=== PATIENT | female | born 1955 | race Caucasian/White ===

== ENCOUNTER 2016-10-25 11:41 | Inpatient (IN) | payer OTHER ==
[2016-10-25] VITALS (7 sets, daily range): BP systolic 100–162; BP diastolic 66–114
[~2016-10-25] VITALS: Ht 152.4 cm; Wt 41.2 kg
[2016-10-25 11:59] LABS: HEMATOCRIT 37.2 % (36.0-46.0); MCH 32.7 PG (29.0-34.0); MCHC 33.3 G/DL (30.0-36.0); MCV 98.2 FL (83-99); MEAN PLAT.VOLUME 9.1 uM^3 (9.5-12.4); PLATELET COUNT 196 K/uL (156-360); RBC DIS.WIDTH-CV 13.2 % (11.8-14.6); RBC DIS.WIDTH-SD 47.5 % (39-53); RED BLOOD COUNT 3.79 M/uL (3.80-5.20); WHITE BLOOD COUNT 11.2 K/uL (4.1-10.2)
[2016-10-25 12:19] LABS: AMYLASE 19 IU/L (1-118); CHLORIDE 92 mEq/L (99-109); SODIUM 134 mEq/L (136-147)
[2016-10-25 12:21] LABS: GLUCOSE 120 mg/dL (70-99)
[2016-10-25 12:24] LABS: SERUM ETHYL ALCOHOL < 10 mg/dL
[2016-10-25 12:26] LABS: UREA NITROGEN (BUN) 9 mg/dL (9-23)
[2016-10-25 12:28] LABS: LIPASE 19 U/L (1.0-51.0)
[2016-10-25 12:31] LABS: GFR ESTIMATE (CALCULATED) > 59 mL/min/
[2016-10-25 12:39] LABS: ANION GAP 10 MEQ/L (2-14)
[2016-10-25 14:03] LABS: PROTHROMBIN TIME 11.2 SEC (10.2-12.9)
[2016-10-25 14:05] LABS: PTT 31.5 SEC (25-37)
[2016-10-25 14:15] LABS: BASOPHIL COUNT 0.1 K/uL (0-0.1); EOSINOPHIL (%) 0.2 % (0-5); IMMATURE GRANULOCYTE (%) 1.7 % (0.0-0.7); IMMATURE GRANULOCYTE COUNT 0.2 K/uL; INSTRUMENT ABS NEUTROPHIL CT 9.8 K/uL; LYMPHOCYTE COUNT 0.3 K/uL (1.0-2.8); MONOCYTE (%) 8.3 % (3-12); MONOCYTE COUNT 0.9 K/uL (0-0.8); NEUTROPHIL (%) 86.8 % (45-76); NEUTROPHIL COUNT 9.8 K/uL (1.8-6.4)
[2016-10-25] MEDS ORDERED: LEVOTHYROXINE100 MCG PO (14:20)
[2016-10-25] MEDS ORDERED: LO-DOSE ASPIRIN81 M1 PO (14:20)
[2016-10-25] MEDS ORDERED: VENTOLIN HFA18 GM IH (14:20)
[2016-10-25] MEDS ORDERED: AMIODARONE HCL200 MG PO (14:55)
[2016-10-25] MEDS ORDERED: LOPRESSOR25 MG PO (14:56)
[2016-10-25] MEDS ORDERED: ATORVASTATIN CA40 MG PO (14:56)
[2016-10-25] MEDS ORDERED: ALPRAZOLAM0.5 MG PO (14:57)
[2016-10-25 15:01] LABS: PREALBUMIN < 3.0 mg/dL (10-40)
[2016-10-25 15:30] LABS: TROP-I INTERPRETATION NEGATIVE; TROPONIN-I 0.03 ng/mL (0.0-0.30)
[2016-10-25 17:44] LABS: METH RESISTANT S AUREUS PCR NEGATIVE (NEGATIVE)
[2016-10-25 17:50] LABS: PROBE CHECK PASS; SPECIMEN PROCESSING CONTROL PASS
[2016-10-26] VITALS (14 sets, daily range): BP systolic 92–161; BP diastolic 54–90
[2016-10-26 01:30] LABS: TROP-I INTERPRETATION NEGATIVE; TROPONIN-I 0.02 ng/mL (0.0-0.30)
[2016-10-26 05:28] LABS: ADD MIUA? NO; BILIRUBIN NEGATIVE; BLOOD NEGATIVE; COLOR AMBER ((YELLOW)); GLUCOSE (STRIP) NEGATIVE; KETONES NEGATIVE; LEUKOCYTES NEGATIVE; NITRITE NEGATIVE; PROTEIN (STRIP) 30
[2016-10-26 05:33] LABS: SPECIFIC GRAVITY 1.089 (1.000-1.030)
[2016-10-26 06:12] LABS: AMPHETAMINES QUANT VALUE 0 NG/ML; BARBITUATES QUANT VALUE 0 NG/ML; BENZODIAZEPINES, URINE SCREEN POSITIVE (200 ng/mL); MARIJUANA QUANT VALUE 0 NG/ML; PHENCYCLIDINE QUANT VALUE 0 NG/ML
[2016-10-26 07:13] LABS: HEMATOCRIT 36.3 % (36.0-46.0); MCH 32.9 PG (29.0-34.0); MCHC 32.8 G/DL (30.0-36.0); MCV 100.3 FL (83-99); MEAN PLAT.VOLUME 9.3 uM^3 (9.5-12.4); PLATELET COUNT 163 K/uL (156-360); RBC DIS.WIDTH-CV 13.3 % (11.8-14.6); RBC DIS.WIDTH-SD 49.4 % (39-53); RED BLOOD COUNT 3.62 M/uL (3.80-5.20)
[2016-10-26 07:40] LABS: ALKALINE PHOSPHATASE 75 IU/L (3-129); ANION GAP 9 MEQ/L (2-14); CHLORIDE 100 MEQ/L (99-109); GFR ESTIMATE (CALCULATED) > 59 mL/min/; GLUCOSE 141 mg/dL (70-99); MAGNESIUM 1.6 mg/dl (1.3-2.7); SAMPLE HEMOLYSIS CHECK 0; SAMPLE ICTERIC CHECK 0; SAMPLE LIPEMIA CHECK 0; SODIUM 137 MEQ/L (136-147); TOTAL BILIRUBIN 0.4 MG/DL (0.0-1.0); UREA NITROGEN (BUN) 10 mg/dL (9-23)
[2016-10-26 07:42] LABS: TROP-I INTERPRETATION NEGATIVE; TROPONIN-I 0.02 ng/mL (0.0-0.30)
[2016-10-26 07:51] LABS: POTASSIUM 4.9 MEQ/L (3.7-5.4)
[2016-10-26 17:02] LABS: TROP-I INTERPRETATION NEGATIVE; TROPONIN-I 0.04 ng/mL (0.0-0.30)
[2016-10-27 07:08] LABS: HEMATOCRIT 33.3 % (36.0-46.0); MCH 33.5 PG (29.0-34.0); MCHC 33.3 G/DL (30.0-36.0); MCV 100.6 FL (83-99); MEAN PLAT.VOLUME 9.8 uM^3 (9.5-12.4); PLATELET COUNT 118 K/uL (156-360); RBC DIS.WIDTH-CV 13.6 % (11.8-14.6); RBC DIS.WIDTH-SD 50.4 % (39-53); RED BLOOD COUNT 3.31 M/uL (3.80-5.20); WHITE BLOOD COUNT 11.1 K/uL (4.1-10.2)
[2016-10-27 07:30] LABS: TROP-I INTERPRETATION NEGATIVE; TROPONIN-I 0.13 ng/mL (0.0-0.30)
[2016-10-27 07:52] LABS: ANION GAP 8 MEQ/L (2-14); CHLORIDE 104 MEQ/L (99-109); GFR ESTIMATE (CALCULATED) > 59 mL/min/; GLUCOSE 164 mg/dL (70-99); POTASSIUM 5.2 MEQ/L (3.7-5.4); SAMPLE HEMOLYSIS CHECK 0; SAMPLE ICTERIC CHECK 0; SAMPLE LIPEMIA CHECK 0; SODIUM 138 MEQ/L (136-147); UREA NITROGEN (BUN) 12 mg/dL (9-23)
[2016-10-27 08:24] VITALS: BP 1596/72
[2016-10-27 11:37] VITALS: BP 177/96
== END 2016-10-27 13:45 | disposition left against medical advice (07) | DRG 82 ==
LOC: TRA 11:41 → 3EAST 13:57 → EDOF 13:57 → 4WEST 13:57 → ENRESERV 13:58 → 4WEST 16:03 → ENRESERV 10-26 13:08 → 3EAST 10-26 19:19
PROVIDERS: Emergency Medicine; Surgery
PROC: 0HQEXZZ Repair Left Lower Arm Skin, External Approach (ICD-10-PCS; principal; 2016-10-25)
DX: S06.339A Contusion and laceration of cerebrum, unspecified, with loss of consciousness of unspecified duration, initial encounter (principal); J69.0 Pneumonitis due to inhalation of food and vomit; S51.012A Laceration without foreign body of left elbow, initial encounter; S01.81XA Laceration without foreign body of other part of head, initial encounter; V47.5XXA Car driver injured in collision with fixed or stationary object in traffic accident, initial encounter; Y92.410 Unspecified street and highway as the place of occurrence of the external cause; S20.212A Contusion of left front wall of thorax, initial encounter; R40.2413 Glasgow coma scale score 13-15, at hospital admission; I82.890 Acute embolism and thrombosis of other specified veins; J44.1 Chronic obstructive pulmonary disease with (acute) exacerbation; J95.5 Postprocedural subglottic stenosis; K22.2 Esophageal obstruction; E87.3 Alkalosis; C15.9 Malignant neoplasm of esophagus, unspecified; I65.23 Occlusion and stenosis of bilateral carotid arteries; E46 Unspecified protein-calorie malnutrition; E87.6 Hypokalemia; Z68.1 Body mass index [BMI] 19.9 or less, adult; N20.0 Calculus of kidney; I10 Essential (primary) hypertension; E78.5 Hyperlipidemia, unspecified; E03.9 Hypothyroidism, unspecified; I25.10 Atherosclerotic heart disease of native coronary artery without angina pectoris; M47.892 Other spondylosis, cervical region; M50.223 Other cervical disc displacement at C6-C7 level; Z87.891 Personal history of nicotine dependence; Z91.81 History of falling; Z92.3 Personal history of irradiation; Z23 Encounter for immunization; Z96.89 Presence of other specified functional implants
CPT/HCPCS: 70450; 71010; 71260; 72125; 72129; 72132; 73080; 74177; 74230; 80048; 80053; 80306 90; 81003; 82150; 83690; 83735; 84100; 84134; 84484; 85025; 85027; 85610; 85730; 86900; 86901; 87641; 92523 GN; 92610 GN; 92611 GN; 93005; 93880; 93970; 94640; 94640 76; 94760; 94799; 95819; 99202; 99281; 99285; G0480; J0696; J0780; J2270; J2930; J3480; J7050; Q0169